=== PATIENT | female | born 1945 | race Two or more races ===

== ENCOUNTER → 2018-11-17 | Outpatient (CLI) | payer OTHER | END | disposition home or self-care (01) | LOC: SONOGRAMA 09:26 → EDBD 09:26 → MAMO-SONO 09:45 | DX: R10.30 Lower abdominal pain, unspecified (principal); R10.84 Generalized abdominal pain ==

== ENCOUNTER → 2018-12-05 | Outpatient (CLI) | payer OTHER | END | disposition home or self-care (01) | LOC: NUCLEAR 07:00 | DX: R10.30 Lower abdominal pain, unspecified (principal) | CPT/HCPCS: 78226; A9537 ==

== ENCOUNTER 2019-01-25 05:41 | Day surgery (SDC) | payer OTHER ==
[~2019-01-25 05:41] MED LIST: AMLODIPINE BESYL5 MG PO; ASPIRIN81 M1 PO; COZAAR100 MG PO; TIROSINT75 MCG PO; ZOCOR20 MG PO
[2019-01-25] MEDS ORDERED: PERCOCET 5-3251 EACH PO (12:06)
[2019-01-25] MEDS ORDERED: NEURONTIN600 MG PO (12:06)
[2019-01-25] MEDS ORDERED: POLY119PG PO (12:07)
[2019-01-25] MEDS ORDERED: SURFAK240 M1 PO (12:07)
[2019-01-25] MEDS ORDERED: PHENERGAN25 MG PO (12:08)
== END 2019-01-26 09:35 | disposition home or self-care (01) ==
LOC: CIR.AMB 05:41
DX: K43.0 Incisional hernia with obstruction, without gangrene (principal); K42.0 Umbilical hernia with obstruction, without gangrene; K40.90 Unilateral inguinal hernia, without obstruction or gangrene, not specified as recurrent

== ENCOUNTER 2021-03-09 11:27 | Emergency (ER) | payer OTHER ==
[~2021-03-09] VITALS: Ht 149.9 cm; Wt 61.2 kg
[~2021-03-09 11:27] MED LIST changes: +NEURONTIN600 MG PO; +PERCOCET 5-3251 EACH PO; +PHENERGAN25 MG PO; +POLY119PG PO; +SURFAK240 M1 PO
== END 2021-03-09 15:06 | disposition home or self-care (01) ==
LOC: ER 11:27
DX: K31.84 Gastroparesis (principal); N39.0 Urinary tract infection, site not specified

== ENCOUNTER 2021-06-26 08:36 | Outpatient (CLI) | payer OTHER | END 2021-06-26 08:41 | disposition home or self-care (01) | LOC: TOM 08:36 | PROVIDERS: ATTEND Specialist/Technologist, Other Nephrology | DX: Q61.02 Congenital multiple renal cysts (principal); N18.1 Chronic kidney disease, stage 1; K57.90 Diverticulosis of intestine, part unspecified, without perforation or abscess without bleeding; N20.0 Calculus of kidney; N13.71 Vesicoureteral-reflux without reflux nephropathy ==

== ENCOUNTER 2021-07-04 10:09 | Outpatient (CLI) | payer OTHER | END 2021-07-04 10:11 | disposition home or self-care (01) | LOC: NUCLEAR 10:09 | PROVIDERS: ATTEND Specialist/Technologist, Other Nephrology | DX: N19 Unspecified kidney failure (principal); N13.9 Obstructive and reflux uropathy, unspecified; N13.71 Vesicoureteral-reflux without reflux nephropathy | CPT/HCPCS: 78707; A4641; J1940 ==